=== PATIENT | female | born 1975 | race Caucasian/White ===

== ENCOUNTER 2019-06-11 14:10 | Emergency (ER) | payer BC ==
[~2019-06-11] VITALS: Ht 170.2 cm; Wt 97.9 kg
[~2019-06-11 14:10] MED LIST: HYDR2TAB29 PO; LEVO125T63 PO; No meds per pt.
[2019-06-11 14:12] VITALS: BP 134/88
[2019-06-11] MEDS ORDERED: THYR90TA PO (15:00)
--- NOTE | 2019-06-11 15:02 | NUR ---
Pt to room with significant other; pt reports she is here because her primary care provider suspected a kidney stone; pt reports ache in right lumbar area; palpation has no effect on character or amount of pain. Attached to monitor, VSS. Awaiting orders.
[2019-06-11 15:19] LABS: BASOPHILS # (AUTO) 0.01 x10^3/uL (0-0.1); BASOPHILS % (AUTO) 0 % (0-1); EOSINOPHILS # (AUTO) 0.22 x10^3/uL (0-0.4); EOSINOPHILS % (AUTO) 2 % (1-7); LYMPHOCYTES # (AUTO) 2.38 x10^3/uL (1-3.4); LYMPHOCYTES % (AUTO) 20 % (22-44); MD NO; MEAN CORPUSCULAR HEMOGLOBIN 30.8 pg (27.0-34.8); MEAN CORPUSCULAR VOLUME 90.6 fL (80-100); MEAN PLATELET VOLUME 7.5 fL (7.4-10.4); MONOCYTES # (AUTO) 0.85 x10^3/uL (0.2-0.8); MONOCYTES % (AUTO) 7 % (2-9); NEUTROPHILS # (AUTO) 8.46 x10^3/uL (1.8-6.8); NEUTROPHILS % (AUTO) 71 % (42-75); PLATELET COUNT 309 x10^3/uL (130-400); RED BLOOD COUNT 4.77 x10^6/uL (3.82-5.3); RED CELL DISTRIBUTION WIDTH 13.2 % (9.6-15.2)
[2019-06-11] MEDS ORDERED: KETOROLAC 30 MG/1 ML ONE (15:20)
[2019-06-11] MEDS ORDERED: ONDANSETRON 2MG/ML, 2ML ONE (15:21)
[2019-06-11] MEDS ORDERED: KETOROLAC 30 MG/1 ML IVPush ONE (15:30)
[2019-06-11] MEDS ORDERED: ONDANSETRON 2MG/ML, 2ML IVPush ONE (15:30)
[2019-06-11] MEDS ORDERED: SODIUM CHLORIDE FLUSH 10ML SYR IVF ONE (15:30)
[2019-06-11] MEDS ORDERED: DIAZEPAM 5 MG TABLET PO ONE (15:30)
[2019-06-11 15:32] LABS: ALANINE AMINOTRANSFERASE 34 U/L (12-78); ALBUMIN 4.1 g/dL (3.4-5.0); ANION GAP 9 mmol/L (5-15); CALCIUM 8.5 mg/dL (8.5-10.1); CHLORIDE 109 mmol/L (98-107); CREATININE 0.93 mg/dL (0.55-1.02)
[2019-06-11 15:34] LABS: ALKALINE PHOSPHATASE 81 U/L (45-117); BILIRUBIN,TOTAL 0.6 mg/dL (0.2-1.0)
[2019-06-11] MEDS ORDERED: DIAZEPAM 5 MG TABLET ONE (15:54)
--- NOTE | 2019-06-11 16:15 | NUR ---
Patient informed of order for u/a. Patient agreeable. Patient walked to bathroom, but was only able to pee <5mL. Informed of order for bladder scan; bladder scan complete showing 13mL in bladder. Provider informed; received orders to encourage po hydration; educated patient and provided water. Patient verbalized understanding.
[2019-06-11 17:25] LABS: HCG UR SG 1.033 (1.003-1.030); MICROSCOPIC AUTO
[2019-06-11 17:41] LABS: CULTURE INDICATED? NO
== END 2019-06-11 18:33 | disposition home or self-care (01) ==
LOC: ED 15:31
DX: M62.830 Muscle spasm of back (principal)
CPT/HCPCS: 36415; 80053; 81001; 81025; 83690; 85025; 96374; 96375; 99283; J1885; J2405

== ENCOUNTER 2020-04-17 18:43 | Emergency (ER) | payer BC ==
[~2020-04-17] VITALS: Ht 170.2 cm; Wt 104.4 kg
[~2020-04-17 18:43] MED LIST changes: +THYR90TA PO
[2020-04-17] MEDS ORDERED: LEVO25TA4 PO (19:03)
[2020-04-17] MEDS ORDERED: [UNRECOGNIZED DRUG - OTHER] PO (19:03)
--- NOTE | 2020-04-17 19:04 | NUR ---
PT CAME IN FOR INTERMITTENT, 8/10 SHARP ABDOMINAL PAIN IN THE RIGHT UPPER QUADRANT. PT HAS HYPOACTIVE BOWEL SOUNDS NOTED, PT DENIES N/V/D, SKIN IS FLUSHED WARM AND DRY, PT IS NAD, RESP WNL, VSS, WCTM. WAITING ON MD SMITH FOR POC. PT CHANGED INTO GOWN RESTING ON GURNEY AFTER AMBULATING TO AND FROM RESTROOM WITH A SMOOTH AND STEADY GAIT.
[2020-04-17 19:44] LABS: HCG UR SG 1.007 (1.003-1.030); MICROSCOPIC NOT IND
[2020-04-17 19:46] LABS: ALANINE AMINOTRANSFERASE 35 U/L (12-78); ALBUMIN 3.8 g/dL (3.4-5.0); ANION GAP 8 mmol/L (5-15); CALCIUM 9.3 mg/dL (8.5-10.1); CHLORIDE 105 mmol/L (98-107); CREATININE 1.02 mg/dL (0.55-1.02)
[2020-04-17 19:47] LABS: BASOPHILS # (AUTO) 0.03 x10^3/uL (0-0.1); BASOPHILS % (AUTO) 0 % (0-1); EOSINOPHILS # (AUTO) 0.34 x10^3/uL (0-0.4); EOSINOPHILS % (AUTO) 2 % (1-7); LYMPHOCYTES # (AUTO) 3.47 x10^3/uL (1-3.4); LYMPHOCYTES % (AUTO) 24 % (22-44); MD NO; MEAN CORPUSCULAR HEMOGLOBIN 29.9 pg (27.0-34.8); MONOCYTES # (AUTO) 0.62 x10^3/uL (0.2-0.8); MONOCYTES % (AUTO) 4 % (2-9); NEUTROPHILS # (AUTO) 10.12 x10^3/uL (1.8-6.8); NEUTROPHILS % (AUTO) 69 % (42-75); PLATELET COUNT 313 x10^3/uL (130-400); RED BLOOD COUNT 4.97 x10^6/uL (3.82-5.3); RED CELL DISTRIBUTION WIDTH 13.5 % (9.6-15.2)
[2020-04-17 19:48] LABS: ALKALINE PHOSPHATASE 92 U/L (45-117); BILIRUBIN,TOTAL 0.4 mg/dL (0.2-1.0); TOTAL PROTEIN 7.7 g/dL (6.4-8.2)
--- NOTE | 2020-04-17 20:04 | NUR ---
pt resting in gurney, call light on lap, condition unchanged, pt states abdominal pain is really bad and she is requesting pain meds. WCTM. waiting for recheck.
[2020-04-17] MEDS ORDERED: HYDROcodone/APAP 5/325 TABLET ONE (20:09)
--- NOTE | 2020-04-17 20:12 | NUR ---
PT DECLINED STRONGER PAIN MANAGEMENT MEDICATIONS D/T NO HAVING A RIDE HOME. PT IS RESTING IN [facility], [facility] no SOB, SKIN FLUSHED WARM AND DRY, NAD, CALL LIGHT ON LAP, VSS, WCTM. WAITING FOR CT.
[2020-04-17] MEDS ORDERED: DICYCLOMINE 10 MG/ML, 2ML ONE (20:27)
[2020-04-17] MEDS ORDERED: MORPHINE SULFATE 4 MG/ML, 1ML IVPush PRN (20:30)
[2020-04-17] MEDS ORDERED: SODIUM CHLORIDE FLUSH 10ML SYR IVF ONE (20:30)
[2020-04-17] MEDS ORDERED: DICYCLOMINE 10 MG/ML, 2ML IM ONE (20:30)
[2020-04-17] MEDS ORDERED: ONDANSETRON 2MG/ML, 2ML IVPush ONE (20:30)
[2020-04-17] MEDS ORDERED: HYDROcodone/APAP 5/325 TABLET PO ONE (20:30)
--- NOTE | 2020-04-17 20:37 | NUR ---
pt declined non narcotic medication due to not wanting another injection, pt says she can "tough it out", RN explained to pt that we cant do oral or certain medications due to not having a diagnosis or knowing if her diagnosis will be surgical. pt condition unchanged, NAD. Waiting for CT. WCTM.
--- NOTE | 2020-04-17 20:57 | NUR ---
NEED IV FOR CT.
--- NOTE | 2020-04-17 21:08 | NUR ---
pt to CT via lyn, REJI, RESP WNL, VSS, skin flushed warm and dry
[2020-04-17] MEDS ORDERED: OMNIPAQUE 350 MG/ML, 100ML BOTTLE ONE (21:16)
--- NOTE | 2020-04-17 21:27 | NUR ---
pt back from CT, condition unchanged, VSS, NAD, call light on lap, WCTM. Waiting on CT read
[2020-04-17 21:31] VITALS: BP 143/81
--- NOTE | 2020-04-17 21:34 | NUR ---
pt skin P/W/D, updated on POC, denies pain currently saying it subsided and shes "feeling a lot better". VSS, WCTM.
--- NOTE | 2020-04-17 22:08 | NUR ---
Patient given discharge instructions and they have confirmed that they understand the instructions. Patient ambulatory with steady gait. NAD, RESP WNL, VSS, P/W/D, denies additional questions at this time.
== END 2020-04-17 22:11 | disposition home or self-care (01) ==
LOC: ED 20:53
DX: R10.11 Right upper quadrant pain (principal); R10.31 Right lower quadrant pain
CPT/HCPCS: 36415; 74021; 74177; 80053; 81003; 81025; 83690; 85025; 99285; Q9967

== ENCOUNTER 2020-12-30 21:18 | Emergency (ER) | payer BC ==
[~2020-12-30] VITALS: Ht 170.2 cm; Wt 103.0 kg
[~2020-12-30 21:18] MED LIST changes: +LEVO25TA4 PO; +[UNRECOGNIZED DRUG - OTHER] PO
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
[2020-12-30 21:57] LABS: BASOPHILS % (AUTO) 1 % (0-1); EOSINOPHILS % (AUTO) 3 % (1-7); LYMPHOCYTES % (AUTO) 27 % (22-44); MEAN CORPUSCULAR HEMOGLOBIN 30.4 pg (27.0-34.8); MEAN CORPUSCULAR HGB CONC 34.8 g/dL (32.4-35.8); MEAN PLATELET VOLUME 7.8 fL (7.4-10.4); MONOCYTES % (AUTO) 6 % (2-9); NEUTROPHILS % (AUTO) 63 % (42-75); PLATELET COUNT 282 x10^3/uL (130-400); RED BLOOD COUNT 4.76 x10^6/uL (3.82-5.3); RED CELL DISTRIBUTION WIDTH 14.3 % (9.6-15.2)
[2020-12-30] MEDS ORDERED: SODIUM CHLORIDE FLUSH 10ML SYR IVF ONE (22:00)
[2020-12-30] MEDS ORDERED: SODIUM CHLORIDE 0.9% 1,000ML IVBOLUS ONE (22:00)
[2020-12-30 22:02] LABS: MD NO
[2020-12-30 22:07] LABS: ALBUMIN 3.7 g/dL (3.4-5.0); ANION GAP 9 mmol/L (5-15); CALCIUM 8.9 mg/dL (8.5-10.1); CHLORIDE 108 mmol/L (98-107)
--- NOTE | 2020-12-30 22:07 | NUR ---
REPORT TO NEELAM [facility]
[2020-12-30 22:16] LABS: ALANINE AMINOTRANSFERASE 43 U/L (12-78); ALKALINE PHOSPHATASE 104 U/L (45-117); BILIRUBIN,TOTAL 0.3 mg/dL (0.2-1.0); CREATININE 0.95 mg/dL (0.55-1.02); FREE T4 (FREE THYROXINE) 0.83 ng/dL (0.76-1.46); T4 (THYROXINE) 7.4 mcg/dL (4.8-13.9); TOTAL PROTEIN 7.3 g/dL (6.4-8.2); TROPONIN I < 0.015 ng/mL (0.000-0.045)
[2020-12-30 23:20] VITALS: BP 121/60
== END 2020-12-30 23:22 | disposition home or self-care (01) ==
LOC: ED 23:20
DX: R00.2 Palpitations (principal); R00.0 Tachycardia, unspecified; R94.31 Abnormal electrocardiogram [ECG] [EKG]; I51.7 Cardiomegaly; R07.89 Other chest pain; F17.210 Nicotine dependence, cigarettes, uncomplicated; Z90.49 Acquired absence of other specified parts of digestive tract; Z88.6 Allergy status to analgesic agent
CPT/HCPCS: 36415; 71045; 80053; 80320; 83735; 83880; 84436; 84439; 84443; 84484; 84703; 85025; 85379; 93005; 96360; 99285; 99406; J7030; G0480

== ENCOUNTER 2021-05-23 10:57 | Emergency (ER) | payer BC ==
[~2021-05-23] VITALS: Ht 170.2 cm; Wt 110.0 kg
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
--- NOTE | 2021-05-23 11:41 | NUR ---
at bedside for exam.
--- NOTE | 2021-05-23 11:55 | NUR ---
PCXR already completed, research laboratory specialist finishing with draw now, and NS bolus started to IV site; running easily at wide open rate. UA order not present.
[2021-05-23] MEDS ORDERED: SODIUM CHLORIDE 0.9% 1,000ML IVBOLUS ONE (12:00)
[2021-05-23 12:07] LABS: BASOPHILS % (AUTO) 1 % (0-1); EOSINOPHILS % (AUTO) 2 % (1-7); LYMPHOCYTES % (AUTO) 21 % (22-44); MEAN CORPUSCULAR HEMOGLOBIN 30.2 pg (27.0-34.8); MEAN CORPUSCULAR HGB CONC 34.2 g/dL (32.4-35.8); MEAN PLATELET VOLUME 7.7 fL (7.4-10.4); MONOCYTES % (AUTO) 5 % (2-9); NEUTROPHILS % (AUTO) 72 % (42-75); PLATELET COUNT 279 x10^3/uL (130-400); RED BLOOD COUNT 4.83 x10^6/uL (3.82-5.3); RED CELL DISTRIBUTION WIDTH 13.6 % (9.6-15.2)
[2021-05-23] MEDS ORDERED: ALPR0.5T7 PO (12:11)
[2021-05-23] MEDS ORDERED: LEVO25TA2 PO (12:11)
[2021-05-23 12:12] LABS: ALBUMIN 3.6 g/dL (3.4-5.0); ANION GAP 7 mmol/L (5-15); CALCIUM 8.7 mg/dL (8.5-10.1); CHLORIDE 104 mmol/L (98-107); CREATININE 0.74 mg/dL (0.55-1.02)
[2021-05-23 12:15] LABS: TROPONIN I < 0.015 ng/mL (0.000-0.045)
[2021-05-23 12:24] LABS: MICROSCOPIC AUTO
--- NOTE | 2021-05-23 12:41 | NUR ---
UA results pending, noted WBC elevated and other lab and radiology results reviewed. Pt remains stable and symptoms resolved since arrival.
--- NOTE | 2021-05-23 13:40 | NUR ---
Pt states she had run of tachycardia in 150's and did not feel right. HR currently 85 and SR on the monitor. MD notified as pt is up for d/c but does not want to go yet until this is looked into. exercise equipment repair technician able to print short event with HR 136 to 144, ST on EKG with artifact in 130's on the printout at >140's noted. Printed event brought to MD and pt aware that MD will be in shortly to speak with her before completing d/c. Pt with notable irritation with staff.
--- NOTE | 2021-05-23 14:18 | NUR ---
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 Pt IV d/c'd and pt went to the restroom before returning for d/c instructions.
[2021-05-23 14:21] VITALS: BP 126/83
== END 2021-05-23 14:23 | disposition home or self-care (01) ==
LOC: ED 11:57
DX: R00.2 Palpitations (principal); E86.0 Dehydration; R07.9 Chest pain, unspecified; F41.1 Generalized anxiety disorder; N30.00 Acute cystitis without hematuria; Z90.49 Acquired absence of other specified parts of digestive tract; Z88.6 Allergy status to analgesic agent
CPT/HCPCS: 36415; 71045; 80048; 81001; 82040; 84484; 85025; 87077; 87086; 93005; 96360; 96361; 99285; J7030; 87186

== ENCOUNTER 2021-07-05 16:18 | Outpatient (CLI) | payer BC ==
[~2021-07-05 16:18] MED LIST changes: +ALPR0.5T7 PO; +LEVO25TA2 PO
== END 2021-07-05 23:59 | disposition home or self-care (01) ==
LOC: RAD 16:18
PROVIDERS: ATTEND Physician Assistant
DX: R07.0 Pain in throat (principal); Z20.828 Contact with and (suspected) exposure to other viral communicable diseases
CPT/HCPCS: 76536